=== PATIENT | female | born 1955 | race Caucasian/White ===

== ENCOUNTER 2022-08-27 15:08 | Observation (INO) | payer MEDICARE, SELFPAY ==
[2022-08-27 15:58] LABS: #Basophils 0.1 thou/uL (0.0-0.2); #Eosinphils 0.2 thou/uL (0.0-0.7); #Lymphocytes 2.5 thou/uL (1.20-3.40); #Monocytes 0.7 thou/uL (0.11-0.59); %Basophils 1.1 % (0.0-1.0); %Eosinophils 1.7 % (0.0-10.0); %Lymphocytes 26.2 % (21.0-51.0); %Monocytes 7.4 % (0.0-10.0); %Neutrophils 63.6 % (42.0-75.0); Hemoglobin 15.4 g/dL (12.0-16.0); Mean Corpuscular HGB CONC 33.4 g/dL (32.0-36.0); Mean Corpuscular Hemoglobin 32.1 pg (27.0-31.0); Mean Corpuscular Volume 96.4 fl (78.0-98.0); Mean Platelet Volume 9.5 fL (7.4-10.4); Platelet Count 162 10x3/uL (130-400); RBC Distribution Width 12.3 % (11.5-14.5); White Blood Cell (WBC) Count 9.4 10x3/uL (4.8-10.8)
[2022-08-27 16:09] LABS: INR-International Normal Ratio 1.2; Prothrombin Time 15.7 sec (12.0-14.7)
[2022-08-27 16:10] LABS: PTT 29.8 sec (22.9-36.1)
[2022-08-27 16:21] LABS: ALT (SGPT) 12 U/L (8-55); AST (SGOT) 22 U/L (5-34); Albumin 3.8 g/dL (3.4-4.8); Alkaline Phosphatase 80 U/L (40-110); Anion Gap 17 mmol/L (10-20); BUN (Urea Nitrogen) 13 mg/dL (9.8-20.1); Bilirubin, Total 0.4 mg/dL (0.2-1.2); Calc. Creatinine Clearance 0 mL/min (70-130); Calcium 9.5 mg/dL (7.8-10.44); Carbon Dioxide 19 mmol/L (23-31); Chloride 109 mmol/L (98-107); Estimated GFR 97; Globulin 2.6 g/dL (2.4-3.5); Glucose 83 mg/dL (80-115); Potassium 3.6 mmol/L (3.5-5.1); Protein, Total 6.4 g/dL (5.8-8.1); Sodium 141 mmol/L (136-145)
[2022-08-27] MEDS ORDERED: Metoclopramide HCl 10 MG/2 ML VIAL ONE (16:30)
[2022-08-27] MEDS ORDERED: Acetaminophen 500 MG TAB ONE (16:52)
[2022-08-27] MEDS ORDERED: Nicotine 14 MG PATCH ONE (18:36)
[2022-08-27] MEDS: Nicotine 14 MG PATCH TOP SCH (19:02)
[2022-08-27] MEDS ORDERED: Acetaminophen/Codeine 30-300mg Tablet ONE (21:16)
[2022-08-27] MEDS: Atorvastatin Calcium 40 MG TAB PO SCH (21:22)
[2022-08-28 07:09] LABS: #Basophils 0.1 thou/uL (0.0-0.2); #Eosinphils 0.2 thou/uL (0.0-0.7); #Lymphocytes 2.7 thou/uL (1.20-3.40); #Monocytes 0.7 thou/uL (0.11-0.59); #Neutrophils 4.3 thou/uL (1.40-6.50); %Basophils 1.7 % (0.0-1.0); %Eosinophils 2.8 % (0.0-10.0); %Lymphocytes 33.7 % (21.0-51.0); %Monocytes 8.1 % (0.0-10.0); %Neutrophils 53.7 % (42.0-75.0); Hemoglobin 15.3 g/dL (12.0-16.0); Mean Corpuscular HGB CONC 33.8 g/dL (32.0-36.0); Mean Corpuscular Hemoglobin 32.6 pg (27.0-31.0); Mean Corpuscular Volume 96.6 fl (78.0-98.0); Mean Platelet Volume 9.1 fL (7.4-10.4); Platelet Count 168 10x3/uL (130-400); RBC Distribution Width 12.3 % (11.5-14.5)
[2022-08-28 07:23] LABS: Anion Gap 11 mmol/L (10-20); BUN (Urea Nitrogen) 12 mg/dL (9.8-20.1); Calc. Creatinine Clearance 68 mL/min (70-130); Calcium 9.2 mg/dL (7.8-10.44); Carbon Dioxide 24 mmol/L (23-31); Cardiac Risk 3.1 (Less than 4.5); Chloride 112 mmol/L (98-107); Cholesterol 184 mg/dl (< 200 Desired); Estimated GFR 100; Glucose 85 mg/dL (80-115); HDL Cholesterol 59 mg/dL (>60 Neg Risk); LDL Cholesterol, Calculated 112 mg/dL; Potassium 3.5 mmol/L (3.5-5.1); Sodium 143 mmol/L (136-145); Triglycerides 65 mg/dL (Less than 150)
[2022-08-28] MEDS ORDERED: Aspirin 81 mg Enteric Coated Tablet ONE (09:00)
[2022-08-28] MEDS: Acetaminophen/Codeine 30-300mg Tablet PO PRN ×2 (09:07→20:16)
[2022-08-28] MEDS: Aspirin 81 mg Enteric Coated Tablet PO SCH (09:09)
[2022-08-28] MEDS: Nicotine 14 MG PATCH TOP SCH (09:09)
[2022-08-28 09:10] VITALS: BMI 16.7
[2022-08-28] MEDS ORDERED: Amlodipine 5 MG TAB PO SCH (09:30)
[2022-08-28] MEDS: Atorvastatin Calcium 40 MG TAB PO SCH (20:15)
[2022-08-29 08:01] LABS: Hemoglobin A1c 4.9 % (4.0-6.0)
[2022-08-29] MEDS ORDERED: Sertraline 100 MG TAB PO SCH (09:00)
[2022-08-29 09:35] VITALS: BP 169/87; TEMP 97.7
[2022-08-29] MEDS: Aspirin 81 mg Enteric Coated Tablet PO SCH (09:54)
== END 2022-08-29 10:45 | disposition home or self-care (01) ==
LOC: ERS 15:08 → ERHOLD 17:14 → 2SW 08-28 08:39
PROVIDERS: ADMIT Hospitalist; ATTEND Family Medicine
DX: G43.909 Migraine, unspecified, not intractable, without status migrainosus (principal); I11.0 Hypertensive heart disease with heart failure; I50.9 Heart failure, unspecified; F17.210 Nicotine dependence, cigarettes, uncomplicated; F41.9 Anxiety disorder, unspecified; F32.A Depression, unspecified; G89.29 Other chronic pain; M54.9 Dorsalgia, unspecified; I25.2 Old myocardial infarction; R29.810 Facial weakness; R20.2 Paresthesia of skin; I16.1 Hypertensive emergency; I08.3 Combined rheumatic disorders of mitral, aortic and tricuspid valves; M47.812 Spondylosis without myelopathy or radiculopathy, cervical region; M50.31 Other cervical disc degeneration, high cervical region; M50.321 Other cervical disc degeneration at C4-C5 level; M50.322 Other cervical disc degeneration at C5-C6 level; Z86.73 Personal history of transient ischemic attack (TIA), and cerebral infarction without residual deficits; Z79.899 Other long term (current) drug therapy
CPT/HCPCS: 70450; 70551; 71045; 72125; 80048; 80053; 80061; 83036; 84443; 84484; 85025 ×2; 85610; 85730; 93005; 93306; 99285; G0378 ×4; 36415; J2765

== ENCOUNTER 2025-01-24 16:28 | Observation (INO) | payer MEDICARE ==
[~2025-01-24 16:28] MED LIST: Iopamidol-370 76% 500 ML MDV (1 ML CHARGE) ONE
[2025-01-24 16:50] LABS: #Basophils 0.11 10x3/uL (0.0-0.2); #Eosinophils 0.16 10x3/uL (0.0-0.7); #Monocytes 1.02 10x3/uL (0.11-0.59); #Neutrophils 7.71 10x3/uL (1.40-6.50); %Basophils 1.0 % (0.0-1.0); %Eosinophils 1.4 % (0.0-10.0); %Lymphocytes 20.9 % (21.0-51.0); %Monocytes 8.9 % (0.0-10.0); %Neutrophils 67.5 % (42.0-75.0); Hematocrit 44.8 % (36.0-47.0); Hemoglobin 14.4 g/dL (12.0-16.0); Mean Corpuscular Hemoglobin 30.1 pg (27.0-31.0); Mean Corpuscular Volume 93.7 fL (78.0-98.0); Platelet Count 205 10x3/uL (130-400); Red Blood Cell (RBC) Count 4.78 mill/uL (4.20-5.40); White Blood Cell (WBC) Count 11.41 10x3/uL (4.8-10.8)
[2025-01-24] MEDS ORDERED: Aspirin Chewable 81 MG TAB ONE (16:53)
[2025-01-24 17:18] LABS: ALT (SGPT) 15 U/L (Less than 34); AST (SGOT) 29 U/L (11-34); Albumin 3.9 g/dL (3.1-4.5); Alkaline Phosphatase 92 U/L (40-110); Anion Gap 12 mmol/L (10-20); BUN (Urea Nitrogen) 11 mg/dL (9.8-20.1); Bilirubin, Total 0.4 mg/dL (0.3-1.2); Calc. Creatinine Clearance 0 mL/min (70-130); Calcium 9.2 mg/dL (7.8-10.44); Carbon Dioxide 26 mmol/L (23-31); Chloride 106 mmol/L (98-107); Globulin 2.5 g/dL (2.4-3.5); Glucose 107 mg/dL (80-115); Lipase 36 U/L (8-78); Magnesium 2.1 mg/dL (1.6-2.6); Potassium 3.8 mmol/L (3.5-5.1); Sodium 140 mmol/L (136-145)
[2025-01-24] MEDS ORDERED: Ondansetron PF 4 MG/2 ML Vial ONE (18:42)
[2025-01-24] MEDS ORDERED: Ketorolac Tromethamine 30 MG (1 mL) VIAL ONE (22:32)
[2025-01-24] MEDS ORDERED: Ondansetron PF 4 MG/2 ML Vial IVP PRN (23:30)
[2025-01-25 00:18] VITALS: BMI 17.4
[2025-01-25 06:54] LABS: #Basophils 0.11 10x3/uL (0.0-0.2); #Eosinophils 0.27 10x3/uL (0.0-0.7); #Monocytes 0.75 10x3/uL (0.11-0.59); #Neutrophils 4.89 10x3/uL (1.40-6.50); %Basophils 1.4 % (0.0-1.0); %Eosinophils 3.3 % (0.0-10.0); %Lymphocytes 25.1 % (21.0-51.0); %Monocytes 9.3 % (0.0-10.0); %Neutrophils 60.7 % (42.0-75.0); Hematocrit 44.0 % (36.0-47.0); Hemoglobin 13.8 g/dL (12.0-16.0); Mean Corpuscular Hemoglobin 30.3 pg (27.0-31.0); Mean Corpuscular Volume 96.5 fL (78.0-98.0); Platelet Count 197 10x3/uL (130-400); Red Blood Cell (RBC) Count 4.56 mill/uL (4.20-5.40); White Blood Cell (WBC) Count 8.06 10x3/uL (4.8-10.8)
[2025-01-25 07:10] LABS: Anion Gap 10 mmol/L (10-20); BUN (Urea Nitrogen) 14 mg/dL (9.8-20.1); Calc. Creatinine Clearance 63 mL/min (70-130); Calcium 8.6 mg/dL (7.8-10.44); Carbon Dioxide 23 mmol/L (23-31); Chloride 112 mmol/L (98-107); Glucose 86 mg/dL (80-115); Potassium 3.8 mmol/L (3.5-5.1); Sodium 141 mmol/L (136-145)
[2025-01-25 08:12] VITALS: TEMP 98.1
[2025-01-25] MEDS: Enoxaparin 40 MG (0.4 mL) SYRINGE SC SCH (09:10)
[2025-01-25] MEDS: Acetaminophen 325 MG TAB PO PRN (09:11)
[2025-01-25] MEDS ORDERED: Ondansetron PF 4 MG/2 ML Vial IVP PRN (12:27)
[2025-01-25] MEDS ORDERED: Sincalide 5 MCG VIAL ONE (14:35)
[2025-01-25] MEDS ORDERED: Bacteriostatic Normal Saline 30 ML VIAL ONE (14:35)
[2025-01-25 17:27] VITALS: BP 135/81
== END 2025-01-25 17:28 | disposition home or self-care (01) ==
LOC: ERS 16:28 → T4-A 23:11
PROVIDERS: ADMIT Internal Medicine; ATTEND Internal Medicine
DX: R10.11 Right upper quadrant pain (principal); K31.89 Other diseases of stomach and duodenum; D35.02 Benign neoplasm of left adrenal gland; F32.A Depression, unspecified; I10 Essential (primary) hypertension; F17.200 Nicotine dependence, unspecified, uncomplicated; Z79.899 Other long term (current) drug therapy
CPT/HCPCS: 71045; 74177; 74181; 76376; 76705; 78227; 80048; 80053; 83690; 83735; 84484; 85025 ×2; 93005; 96365; 96375; 99285; A9537; J1885; J2270; J2405; J2543 ×2; J2805; J7030; Q9967; 36415; J1650